=== PATIENT | male | born 1980 | race Caucasian/White ===

== ENCOUNTER 2017-08-02 22:35 | Emergency (ER) | payer BC, OTHER ==
[~2017-08-02] VITALS: Ht 167.6 cm; Wt 52.1 kg
[2017-08-02 22:59] VITALS: Ht 167.6 cm; Wt 52.1 kg
--- NOTE | 2017-08-03 01:57 | ERD ---
ER Documentation Chief Complaint Chief Complaint left sternal chest pain, nonradiating x1d. Exacerbated by deep breathing HPI 37-year-old male presents with left-sided chest pain that started 1 day ago. The patient describes pleuritic chest pain as noted when he takes a deep breath in or out, it is localized to the left side described as sharp and nonradiating. He reports that he has had a dry cough on and off for 2-3 weeks. He denies any history of cardiac disease, but he has been a heavy smoker, smoking up to one pack a day for 20 years. Patient's father has had open heart surgery at the age of 70. He denies recent leg pain, leg swelling, recent travel, history of immobilization, surgeries. ROS All systems reviewed and are negative except as per history of present illness. Medications Home Meds Active Scripts Benzonatate* (Tessalon Perle*) 100 Mg Capsule, 100 MG PO Q8H Y for COUGH, #30 CAP Prov:HUY ESPINOZA PA-C 08/03/17 Ibuprofen* (Motrin*) 600 Mg Tab, 600 MG PO Q6, #30 TAB Prov:HUY ESPINOZA PA-C 08/03/17 Azithromycin* (Zithromax*) 250 Mg Tablet, 250 MG PO .ZPACK DIRECTED, #6 TAB TAKE 500 MG (2 TABS) THE FIRST DAY THEN 250 MG (1 TAB) DAYS 2-5 Prov:HUY ESPINOZA PA-C 08/03/17 Allergies Allergies: Coded Allergies: No Known Drug Allergies (Verified Allergy, Unknown, 08/03/17) PMhx/Soc Medical and Surgical Hx: pt denies Medical Hx, pt denies Surgical Hx Hx Alcohol Use: No Hx Substance Use: No Hx Tobacco Use: No Smoking Status: Current some day smoker Physical Exam Vitals Vital Signs Date Time Temp Pulse Resp B/P Pulse Ox O2 Delivery O2 Flow Rate FiO2 08/02/17 22:59 97.3 81 20 115/74 96 Physical Exam General: Well-developed, well-nourished. The patient appears in no acute distress. HEENT: Head is normocephalic, atraumatic. No scleral icterus. Neck: Supple. Nontender. Lungs: Clear to auscultation. Normal air movement. Heart: Regular rate and rhythm. S1 and S2 are normal. No murmurs, gallops, or rubs. Abdomen: Soft, nontender, nondistended. Bowel sounds are normoactive. Extremities: No clubbing or cyanosis. Normal pulses. Moving extremities x 4. No weakness. Neurologic: Alert and oriented 3. No focal deficits. Skin: Normal turgor. No rash or lesions. Result Diagram: 08/03/1712908/03/17129 Results 24 hrs Laboratory Tests Test 08/03/17 01:30 White Blood Count 12.210^3/ul Red Blood Count 4.5810^6/ul Hemoglobin 13.4g/dl Hematocrit 41.4% Mean Corpuscular Volume 90.4fl Mean Corpuscular Hemoglobin 29.3pg Mean Corpuscular Hemoglobin Concent 32.4g/dl Red Cell Distribution Width 12.9% Platelet Count 21398^3/UL Mean Platelet Volume 9.8fl Neutrophils % 58.9% Lymphocytes % 32.6% Monocytes % 5.5% Eosinophils % 2.0% Basophils % 0.7% Nucleated Red Blood Cells % 0.0/100WBC Neutrophils # 7.210^3/ul Lymphocytes # 4.010^3/ul Monocytes # 0.710^3/ul Eosinophils # 0.210^3/ul Basophils # 0.110^3/ul Nucleated Red Blood Cells # 0.010^3/ul D-Dimer 844.64ng/ml D-Dimer Comment Sodium Level 143mmol/L Potassium Level 4.1mmol/L Chloride Level 99mmol/L Carbon Dioxide Level 34mmol/L Anion Gap 14 Blood Urea Nitrogen 13mg/dl Creatinine 0.80mg/dl Glucose Level 94mg/dl Calcium Level 9.1mg/dl Troponin I < 0.012ng/ml Current Medications Medications (Trade) Dose Ordered Sig/Juliann Route PRN Reason Start Time Stop Time Status Last Admin Dose Admin IV Flush 10 ml 10 ml STK-MED ONCE .ROUTE 08/03/17 02:52 08/03/17 02:53 DC 08/03/17 03:10 Sodium Chloride 100 ml @ ud STK-MED ONCE .ROUTE 08/03/17 02:52 08/03/17 02:53 DC 08/03/17 03:10 Iohexol (Omnipaque) 100 ml @ ud STK-MED ONCE .ROUTE 08/03/17 02:52 08/03/17 02:53 DC 08/03/17 03:14 DIAGNOSTIC IMAGING REPORT Patient: GUNNER LORENZ : 1980 Age: 37 Sex: M MR #: [id number] DOS: 08/03/17 0108 Ordering MD: HUY ESPINOZA PA-C Location: [facility] Room/Bed: PROCEDURE: Portable chest x-ray. CLINICAL INDICATION: Chest pain. TECHNIQUE: Portable AP view of the chest. COMPARISON: None. FINDINGS: There is opacity at the left lung base. The right lung is clear. The cardiac silhouette is magnified. No pleural effusion is seen. There is no pneumothorax. IMPRESSION: 1. Opacity at the left lung base, possibly representing pneumonia. RPTAT: HTAR .Kwesi Mcmillan MD, Date Time Electronically viewed and signed by .Kwesi Mcmillan MD, on 08/03/2017 02:43 .R/ CC: HUY ESPINOZA PA-C DIAGNOSTIC IMAGING REPORT Patient: GUNNER LORENZ : 1980 Age: 37 Sex: M MR #: [id number] DOS: 08/03/17 0235 Ordering MD: HUY ESPINOZA PA-C Location: [facility] Room/Bed: PROCEDURE: CT angiogram chest. CLINICAL INDICATION: Shortness of breath. TECHNIQUE: CT angiogram of the chest was performed utilizing axial images with reconstructions in sagittal and coronal planes following the intravenous administration of 100 cc Omnipaque 350 contrast. The administered radiation dose is CTDI 4.4 mGy, DLP 07 mGy-cm. One or more of the following dose reduction techniques were used: automated exposure control, adjustment of the mA and/or kV according to patient size and/or use of iterative reconstruction technique. 3D and / or MIPS reformats were performed. COMPARISON: No pertinent prior examinations are submitted for comparison. FINDINGS: Pulmonary angiogram: The pulmonary arteries are adequately opacified to the level of the segmental pulmonary artery branches. There is minimal respiratory motion artifact. There is no evidence of pulmonary embolus. Aortogram: There is no evidence of aortic dissection or aneurysm. Major branches of the aorta are patent. Chest: All area of patchy airspace opacity is noted in the anterior basal left lower lobe. No pleural effusions are seen. The tracheobronchial tree is unremarkable. Some cystic changes are noted within the right lung apex. The heart is normal in size. No pericardial effusion is seen. There is no evidence of mediastinal or hilar adenopathy. Visualized Upper abdomen: Unremarkable. Osseous structures: Unremarkable. IMPRESSION: No evidence of pulmonary embolus. Small area of patchy airspace opacity in the anterior basal left lower lobe likely due to pneumonia. RPTAT: HIKT .Alberto Nettles MD, MD Date Time Electronically viewed and signed by .Alberto Nettles MD, MD on 08/03/2017 03:37 .T/ CC: HUY ESPINOZA PA-C Procedures/MDM 12-lead EKG(interpreted by supervising physician): Dr. Leon Rate/Rhythm: Normal Sinus Rhythm, rate of 73 right axis deviation QRS, ST, T-waves: nonspecific ST changes without evidence of ischemia. No changes consistent w/ acute ischemia, no intervals, no dysrhythmias, no ectopy Impression: No evidence of ischemia or arrhythmia DM: 37-year-old comes in with left-sided chest pain, patient's workup shows left lower lung base pneumonia. Patient's chest pain is on the left side, and is pleuritic most consistent with pneumonia, CTPA is negative for pulmonary embolus, and troponin is negative. Patient is not in any respiratory distress, afebrile and stable for discharge with oral antibiotics. Departure Diagnosis: Primary Impression: Pneumonia Condition: Good HUY ESPINOZA PA-C Aug 03, 2017 01:57
--- NOTE | 2017-08-03 02:43 | RADRPT ---
PROCEDURE: Portable chest x-ray. CLINICAL INDICATION: Chest pain. TECHNIQUE: Portable AP view of the chest. COMPARISON: None. FINDINGS: There is opacity at the left lung base. The right lung is clear. The cardiac silhouette is magnifie d. No pleural effusion is seen. There is no pneumothorax. IMPRESSION: 1. Opacity at the left lung base, possibly representing pneumonia. RPTAT: HTAR .Kwesi Mcmillan MD, MD Date Time Electronically viewed and signed by .Kwesi Mcmillan MD, MD on 08/03/2017 02:43 .R/
[2017-08-03] MEDS ORDERED: IOHEXOL 100 ML ONE (02:52)
[2017-08-03] MEDS ORDERED: SOD CHLORIDE 0.9% 100 ML ONE (02:52)
--- NOTE | 2017-08-03 03:37 | RADRPT ---
PROCEDURE: CT angiogram chest. CLINICAL INDICATION: Shortness of breath. TECHNIQUE: CT angiogram of the chest was performed utilizing axial images with reconstructions in sagittal and coronal planes following the intravenous administration of 100 cc Omnipaque 350 contras t. The administered radiation dose is CTDI 4.4 mGy, DLP 07 mGy-cm. One or more of the following dose reduction techniques were used: automated exposure control, adjustment of the mA and/or kV accordin g to patient size and/or use of iterative reconstruction technique. 3D and / or MIPS reformats were performed. COMPARISON: No pertinent prior examinations are submitted for comparison. FINDINGS: Pulmonary angiogram: The pulmonary arteries are adequately opacified to the level of the segmental pulmonary artery branches. There is minimal respiratory motion artifact. There is no evidence of p ulmonary embolus. Aortogram: There is no evidence of aortic dissection or aneurysm. Major branches of the aorta are patent. Chest: All area of patchy airspace opacity is noted in the anterior basal left lower lobe. No pleural effus ions are seen. The tracheobronchial tree is unremarkable. Some cystic changes are noted within the r ight lung apex. The heart is normal in size. No pericardial effusion is seen. There is no evidence of mediastinal or hilar adenopathy. Visualized Upper abdomen: Unremarkable. Osseous structures: Unremarkable. IMPRESSION: No evidence of pulmonary embolus. Small area of patchy airspace opacity in the anterior basal left lower lobe likely due to pneumonia. RPTAT: HIKT .Alberto Nettles MD, MD Date Time Electronically viewed and signed by .Alberto Nettles MD, on 08/03/2017 03:37 .T/
[2017-08-03] MEDS ORDERED: IBUP-1542 PO (03:48)
[2017-08-03] MEDS ORDERED: AZIT250T94 PO (03:48)
[2017-08-03] MEDS ORDERED: BENZ100C70 PO (03:48)
[2017-08-03 04:09] VITALS: BP 135/71; PULSE 71; RESP 16
== END 2017-08-03 04:10 | disposition home or self-care (01) ==
LOC: FTE 22:35
DX: J18.9 Pneumonia, unspecified organism (principal); F17.210 Nicotine dependence, cigarettes, uncomplicated
CPT/HCPCS: 36415; 71010; 71275; 80048; 84484; 85025; 85378; 93005; 99285; Q9967; Z7610

== ENCOUNTER 2018-07-22 11:19 | Emergency (ER) | END 2018-07-22 15:58 | disposition home or self-care (01) ==